=== PATIENT | male | born 1940 | race Caucasian/White ===

== ENCOUNTER 2019-03-29 11:45 | Inpatient (IN) | payer OTHER, MEDICAID ==
[~2019-03-29] VITALS: Ht 172.7 cm; Wt 78.0 kg
[2019-03-29 11:45] VITALS: BP_SYST 137
[2019-03-29] MEDS ORDERED: IBUP-1970 PO (12:05)
[2019-03-29] MEDS ORDERED: LEVE500T9 PO (12:05)
[2019-03-29] MEDS ORDERED: PHEN100C4 PO (12:05)
[2019-03-29 12:25] LABS: BASOPHILS % (AUTO) 0.9 % (0.0-2.0); EOSINOPHILS # (AUTO) 0.2 K/uL (0.0-0.4); EOSINOPHILS % (AUTO) 4.7 % (0.0-4.0); HEMATOCRIT 40.2 % (36-54); HEMOGLOBIN 13.5 g/dL (14.0-18.0); LYMPHOCYTES % (AUTO) 22.1 % (20.5-51.5); MEAN CORPUSCULAR HEMOGLOBIN 30 pg (27-31); MEAN CORPUSCULAR HGB CONC 34 % (32-36); MEAN CORPUSCULAR VOLUME 90 fL (79.0-98.0); MONOCYTES # (AUTO) 0.4 K/uL (0.0-1.0); NEUTROPHILS % (AUTO) 63.3 % (40.0-70.0); PLATELET COUNT (AUTO) 132 K/uL (130-430); RED BLOOD CELL COUNT(AUTO) 4.46 MIL/uL (4.2-6.2); RED CELL DISTRIBUTION WIDTH 13.7 % (9.0-15.0); WHITE BLOOD COUNT (AUTO) 4.7 K/uL (4.8-10.8)
[2019-03-29 12:36] LABS: ANION GAP 4 (5-15); CALCIUM 8.8 mg/dL (8.4-11.0); CHLORIDE 106 mmol/L (98-107); CREATININE 0.81 mg/dL (0.55-1.30); GLUCOSE 96 mg/dL (70-99); POTASSIUM 4.3 mmol/L (3.5-5.1); SODIUM SERUM 139 mmol/L (136-145); UREA NITROGEN, BLOOD 24 mg/dL (8-21)
[2019-03-29 12:42] LABS: ALANINE AMINOTRANSFERASE 32 U/L (12-78); ALBUMIN 3.3 g/dL (3.4-4.8); ASPARTATE AMINOTRANSFERASE 31 U/L (10-37); TOTAL BILIRUBIN 0.1 mg/dL (0.0-1.0)
[2019-03-29] MEDS ORDERED: CEFAZOLIN 2 GM IVPB PREMIX 50 ML IV ONE (12:51)
[2019-03-29] MEDS: D5/0.45 NS 1,000 ML IV SCH (14:02)
[2019-03-29 14:41] VITALS: BP_SYST 186
[2019-03-29] MEDS: ENALAPRILAT DIHYDRATE 1.25 MG/ML VIAL IVP PRN (17:52)
[2019-03-29] MEDS: IBUPROFEN 800 MG TABLET PO SCH (17:57)
[2019-03-29] MEDS ORDERED: PHENYTOIN 100 MG CAPSULE PO ONE (18:00)
[2019-03-29] MEDS ORDERED: ENALAPRILAT DIHYDRATE 1.25 MG/ML VIAL ONE (18:03)
[2019-03-29] MEDS: levETIRAcetam 500 MG TABLET PO SCH (20:20)
[2019-03-29 20:36] VITALS: BP_SYST 160
[2019-03-30] VITALS (9 sets, daily range): BP systolic 143–215
[2019-03-30 01:13] LABS: BILIRUBIN,URINE NEGATIVE (NEGATIVE); BLOOD, URINE NEGATIVE (NEGATIVE); CLARITY/URINE CLEAR (CLEAR); COLOR,URINE YELLOW (YELLOW); GLUCOSE,URINE NEGATIVE (NEGATIVE); KETONES,URINE NEGATIVE (NEGATIVE); LEUKOCYTE ESTERASE ,URINE NEGATIVE (NEGATIVE); NITRITE, URINE NEGATIVE (NEGATIVE); PH,URINE 6.5 (5.0-8.0); PROTEIN URINE NEGATIVE (NEGATIVE); UROBILINOGEN,URINE 0.2 (0.2-1.0)
[2019-03-30 07:14] LABS: BASOPHILS % (AUTO) 0.9 % (0.0-2.0); EOSINOPHILS # (AUTO) 0.2 K/uL (0.0-0.4); EOSINOPHILS % (AUTO) 5.6 % (0.0-4.0); HEMATOCRIT 38.8 % (36-54); LYMPHOCYTES # (AUTO) 0.9 K/uL (1.0-5.5); LYMPHOCYTES % (AUTO) 21.8 % (20.5-51.5); MEAN CORPUSCULAR HEMOGLOBIN 31 pg (27-31); MEAN CORPUSCULAR HGB CONC 34 % (32-36); MEAN CORPUSCULAR VOLUME 91 fL (79.0-98.0); MONOCYTES # (AUTO) 0.4 K/uL (0.0-1.0); MONOCYTES % (AUTO) 9.7 % (1.7-9.3); NEUTROPHILS # (AUTO) 2.4 K/uL (1.8-7.7); PLATELET COUNT (AUTO) 122 K/uL (130-430); RED BLOOD CELL COUNT(AUTO) 4.24 MIL/uL (4.2-6.2); RED CELL DISTRIBUTION WIDTH 13.6 % (9.0-15.0); WHITE BLOOD COUNT (AUTO) 3.9 K/uL (4.8-10.8)
[2019-03-30 07:31] LABS: PROTHROMBIN TIME 10.4 SECS (9.5-12.5)
[2019-03-30 07:38] LABS: ALANINE AMINOTRANSFERASE 27 U/L (12-78); ALBUMIN 2.9 g/dL (3.4-4.8); ASPARTATE AMINOTRANSFERASE 27 U/L (10-37); CHLORIDE 105 mmol/L (98-107); CREATININE 0.71 mg/dL (0.55-1.30); GLUCOSE 93 mg/dL (70-99); POTASSIUM 4.7 mmol/L (3.5-5.1); SODIUM SERUM 136 mmol/L (136-145); TOTAL BILIRUBIN 0.2 mg/dL (0.0-1.0); UREA NITROGEN, BLOOD 11 mg/dL (8-21)
[2019-03-30 07:44] LABS: ANION GAP < 3 (5-15)
[2019-03-30] MEDS: IBUPROFEN 800 MG TABLET PO SCH ×3 (08:30→18:58)
[2019-03-30] MEDS: ENALAPRILAT DIHYDRATE 1.25 MG/ML VIAL IVP PRN (10:57)
[2019-03-30] MEDS ORDERED: hydrALAZINE HCL 20 MG/ML VIAL IVP ONE ×2 (11:45→12:15)
[2019-03-30] MEDS ORDERED: hydrALAZINE HCL 20 MG/ML VIAL ONE (11:58)
[2019-03-30] MEDS ORDERED: ONDANSETRON HCL 4 MG/2 ML VIAL IVP PRN (13:15)
[2019-03-30] MEDS ORDERED: fentaNYL CITRATE/PF 100 MCG/2 ML AMP IVP PRN ×2 (13:15)
[2019-03-30] MEDS ORDERED: fentaNYL CITRATE/PF 100 MCG/2 ML AMP ONE (13:43)
[2019-03-30] MEDS: D5/0.45 NS 1,000 ML IV SCH (14:13)
[2019-03-30] MEDS: levETIRAcetam 500 MG TABLET PO SCH ×2 (14:42→20:58)
[2019-03-30] MEDS: PHENYTOIN 100 MG CAPSULE PO SCH ×2 (14:44→20:58)
[2019-03-30] MEDS ORDERED: LISINOPRIL 10 MG TABLET (PRINIVIL) PO SCH (19:30)
[2019-03-31 07:51] VITALS: BP_SYST 157
[2019-03-31] MEDS: levETIRAcetam 500 MG TABLET PO SCH ×2 (08:50→20:26)
[2019-03-31] MEDS: PHENYTOIN 100 MG CAPSULE PO SCH ×2 (08:51→20:26)
[2019-03-31] MEDS: IBUPROFEN 800 MG TABLET PO SCH ×3 (08:51→18:10)
[2019-03-31] MEDS: LISINOPRIL 10 MG TABLET (PRINIVIL) PO SCH (08:52)
[2019-03-31] MEDS: D5/0.45 NS 1,000 ML IV SCH (12:41)
[2019-03-31 13:00] VITALS: BP_SYST 127
[2019-03-31 15:21] VITALS: BP_SYST 129
[2019-03-31 20:00] VITALS: BP_SYST 138
[2019-03-31] MEDS ORDERED: ONDANSETRON HCL 4 MG/2 ML VIAL IVP PRN (22:30)
[2019-03-31] MEDS ORDERED: MORPHINE 2 MG/ML INJ. SYRINGE IVP PRN (22:30)
[2019-03-31] MEDS: MORPHINE 2 MG/ML INJ. SYRINGE IVP PRN (22:46)
[2019-03-31 23:30] VITALS: BP_SYST 184
[2019-03-31] MEDS: ENALAPRILAT DIHYDRATE 1.25 MG/ML VIAL IVP PRN (23:35)
[2019-04-01] VITALS (7 sets, daily range): BP systolic 140–193
[2019-04-01] MEDS: D5/0.45 NS 1,000 ML IV SCH ×2 (03:45→20:25)
[2019-04-01] MEDS: IBUPROFEN 800 MG TABLET PO SCH ×2 (08:10→12:21)
[2019-04-01] MEDS: levETIRAcetam 500 MG TABLET PO SCH ×2 (08:10→20:26)
[2019-04-01] MEDS: LISINOPRIL 10 MG TABLET (PRINIVIL) PO SCH (08:11)
[2019-04-01] MEDS: PHENYTOIN 100 MG CAPSULE PO SCH ×2 (08:11→20:26)
[2019-04-01] MEDS: ENALAPRILAT DIHYDRATE 1.25 MG/ML VIAL IVP PRN ×3 (08:12→21:05)
[2019-04-01] MEDS: MORPHINE 2 MG/ML INJ. SYRINGE IVP PRN ×2 (15:06→21:06)
[2019-04-02] VITALS (10 sets, daily range): BP systolic 126–205
[2019-04-02] MEDS: MORPHINE 2 MG/ML INJ. SYRINGE IVP PRN (01:31)
[2019-04-02] MEDS: ENALAPRILAT DIHYDRATE 1.25 MG/ML VIAL IVP PRN ×3 (01:31→16:01)
[2019-04-02] MEDS ORDERED: DIPHENHYDRAMINE HCL 25 MG CAPSULE PO PRN (05:00)
[2019-04-02] MEDS ORDERED: LISINOPRIL 20 MG TABLET PO SCH (09:00)
[2019-04-02] MEDS: levETIRAcetam 500 MG TABLET PO SCH (09:03)
[2019-04-02] MEDS: IBUPROFEN 800 MG TABLET PO SCH ×2 (09:04→12:30)
[2019-04-02] MEDS: PHENYTOIN 100 MG CAPSULE PO SCH (09:05)
[2019-04-02] MEDS ORDERED: WATER FOR IRRIGATION,STERILE 1,000 ML IRRIG.SOLN IR ONE (14:16)
[2019-04-02] MEDS ORDERED: PROPOFOL 200MG/ 20ML VIAL (DIPRIVAN) IV ONE (14:16)
[2019-04-02] MEDS ORDERED: LR 1,000 ML IV.SOLN IV ONE (14:16)
[2019-04-02] MEDS ORDERED: MIDAZOLAM HCL 5 MG/5 ML VIAL IVP ONE (14:16)
[2019-04-02] MEDS ORDERED: SEVOFLURANE 15 MIN GAS INH ONE (14:16)
[2019-04-02] MEDS ORDERED: fentaNYL CITRATE/PF 100 MCG/2 ML AMP IVP ONE (14:16)
== END 2019-04-02 19:10 | disposition home or self-care (01) | DRG 508 ==
LOC: SED 11:45 → SMU 13:27
PROVIDERS: ADMIT Internal Medicine; ATTEND Internal Medicine
PROC: 0RPM04Z Removal of Internal Fixation Device from Left Elbow Joint, Open Approach (ICD-10-PCS; principal; 2019-03-31)
DX: T84.84XA Pain due to internal orthopedic prosthetic devices, implants and grafts, initial encounter (principal); I10 Essential (primary) hypertension; F17.210 Nicotine dependence, cigarettes, uncomplicated; Y79.8 Miscellaneous orthopedic devices associated with adverse incidents, not elsewhere classified; Z87.81 Personal history of (healed) traumatic fracture; Z79.899 Other long term (current) drug therapy; Y92.89 Other specified places as the place of occurrence of the external cause
CPT/HCPCS: 36415; 71045; 80053; 81003; 82550-TC; 84484; 85025; 85610-TC; 86886; 86900; 86901; 87081; 88300; 93005; 94010; 99285; J0360; J0690; J2250; J2270; J2704; J3010; J7120